=== PATIENT | male | born 1990 | race Native Hawaiian/Other Pacific Islander ===

== ENCOUNTER 2017-07-03 10:31 | Inpatient (IN) | payer SELFPAY ==
[2017-07-03] VITALS (7 sets, daily range): BP systolic 105–109; BP diastolic 49–58; PULSE 66–92; RESP 13–18; TEMP 98.3–99; O2SAT 99–100
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
[2017-07-03] MEDS ORDERED: IOHEXOL 350 MG/ML 10 ML VIAL (for RAD DIAG) IV ONE (10:56)
[2017-07-03 10:59] LABS: I-STAT POTASSIUM 2.8 MMOL/L (3.5-4.9)
[2017-07-03 10:59] LABS: AUTOMATED NEUTROPHIL # 4.9 TH/MM3 (1.8-7.7); BASOPHIL % 0.4 % (0.0-2.0); EOSINOPHIL % 0.3 % (0.0-4.0); HEMATOCRIT 35.6 % (39.0-51.0); HEMO FLAGS DIFF FINAL; LYMPH % 18.2 % (9.0-44.0); LYMPHOCYTE # 1.2 TH/MM3 (1.0-4.8); MEAN CELL VOLUME 87.3 FL (80.0-100.0); MEAN CORPUSCULAR HEMOGLOBIN 29.7 PG (27.0-34.0); MONO % 4.9 % (0.0-8.0); NEUT % 76.2 % (16.0-70.0); PLATELET COUNT 182 TH/MM3 (150-450); RED BLOOD COUNT 4.08 MIL/MM3 (4.50-5.90); RED CELL DISTRIBUTION WIDTH 12.8 % (11.6-17.2); WHITE BLOOD COUNT 6.5 TH/MM3 (4.0-11.0)
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
[2017-07-03 11:06] LABS: APTT (PATIENT) 26.2 SEC (24.3-30.1); INTERNATIONAL NORMALIZED RATIO 1.1 RATIO; PROTHROMBIN TIME - PATIENT 12.4 SEC (9.8-11.6)
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
--- NOTE | 2017-07-03 11:13 | RADRPT ---
EXAM DATE/TIME: 07/03/2017 10:50 [facility] COMPARISON: No previous studies available for comparison. INDICATIONS : Fall from 40 feet IV CONTRAST: 91 cc Omnipaque 350 (iohexol) IV ; Cumulative dose for multiple exams. ORAL CONTRAST: No oral contrast ingested. RADIATION DOSE: 10.91 CTDIvol (mGy) ; Combined studies - Thorax/Abdomen/Pelvis MEDICAL HISTORY : None SURGICAL HISTORY : None. ENCOUNTER: Initial ACUITY: 1 day PAIN SCALE: 0/10 LOCATION: abdomen TECHNIQUE: Volumetric scanning of the abdomen and pelvis was performed. Using automated exposure control and ad justment of the mA and/or kV according to patient size, radiation dose was kept as low as reasonably achievable to obtain optimal diagnostic quality images. DICOM format image data is available electro nically for review and comparison. FINDINGS: LOWER LUNGS: The visualized lower lungs are clear. LIVER: Homogeneous density without lesion. There is no dilation of the biliary tree. No calcified gallston es. There is streak artifact through the liver. SPLEEN: Normal size without lesion. PANCREAS: Within normal limits. KIDNEYS: Normal in size and shape. There is no mass, stone or hydronephrosis. ADRENAL GLANDS: Within normal limits. VASCULAR: There is no aortic aneurysm. BOWEL/MESENTERY: The stomach, small bowel, and colon demonstrate no acute abnormality. There is no free intraperitone al air or fluid. ABDOMINAL WALL: Within normal limits. RETROPERITONEUM: There is no lymphadenopathy. BLADDER: No wall thickening or mass. REPRODUCTIVE: Within normal limits. INGUINAL: There is no lymphadenopathy or hernia. MUSCULOSKELETAL: Within normal limits for patient age. CONCLUSION: Negative trauma CT. Dickson Langford MD on July 03, 2017 at 11:08 Board Certified Radiologist. This report was verified electronically.
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
[2017-07-03] MEDS ORDERED: CHLORHEXIDINE GLUCONATE 2 % 1 PACK (2 CLOTHS) TOP PRN (11:30)
[2017-07-03] MEDS ORDERED: MAGNESIUM HYDROXIDE SUSP 30 ML CUP PO PRN ×2 (11:30→17:45)
[2017-07-03] MEDS ORDERED: MISCELLANEOUS NURSING INFORMATION XX SCH (11:30)
[2017-07-03] MEDS ORDERED: MIDAZOLAM HCL 2 MG/2 ML VIAL ONE ×2 (11:34→11:35)
[2017-07-03] MEDS ORDERED: fentaNYL CITRATE 250 MCG/5 ML AMP ONE (11:35)
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
[2017-07-03] MEDS ORDERED: HYDROmorphone HCL PF 1 MG/ML VIAL IV PUSH PRN (11:45)
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
--- NOTE | 2017-07-03 12:26 | PD.RAD ---
Post Procedure Progress Note Pre Procedure Diagnosis: (1) Injury resulting from fall from height Post Procedure Diagnosis: (1) Injury resulting from fall from height Procedure Date: Jul 03, 2017 Supervising Radiologist: Rob Agudelo JR Proceduralist/Assist: Alfred Sims RT(R), Terese Ozuna RT(R) Anesthesia: Conscious Sedation Plan of Activity Patient to Unit: Critical Care Patient Condition: Good See PACS Report for procedural detail/treatment Vascular-Arterial Procedure Procedure 1 Procedure Site: Thoracic Procedure(s): Angiogram Access Access Site(s): Right Femoral Artery Findings: Thoracic angiogram shows no intimal tear or extravasation to suggest aortic injury. Jr. Magnus,Rob Del Valle MD Jul 03, 2017 12:26
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
[2017-07-03] MEDS ORDERED: IODIXANOL 320 MG/ML 50 ML VIAL (for RAD SPEC) I-ARTERIAL ONE (13:03)
[2017-07-03] MEDS: HYDROmorphone HCL PF 1 MG/ML VIAL IV PRN ×3 (13:16→21:48)
[2017-07-03] MEDS: FAMOTIDINE 20 MG/2 ML VIAL IV PUSH SCH ×2 (13:35→21:18)
[2017-07-03] MEDS: SODIUM CHLOR 0.9% 1000 ML INJ 1,000 ML IV SCH ×2 (13:57→21:32)
--- NOTE | 2017-07-03 14:16 | RADRPT ---
EXAM DATE/TIME: 07/03/2017 00:00 [place] COMPARISON: CT THORAX W CONTRAST, July 03, 2017, 10:50. INDICATIONS : Trauma patient presents with possible dissection in need of thoracic aortogram with possible interven tions. MEDICAL HISTORY : Unobtainable SURGICAL HISTORY : Unobtainable ENCOUNTER: Initial ACUITY: 1 day PAIN SCORE: 0/10 LOCATION: n/a FLUORO TIME: 1.9 IMAGE SERIES: 2 ACCESS SITE: Right Femoral artery SEDATION TIME: 20 minutes CONTRAST: 1.) 65 cc Visipaque (iodixanol) MEDICATION(S): 1.) 3 mg midazolam (Versed) IV 2.) 150 mcg fentanyl (Sublimaze) IV PROCEDURE : 1. Ultrasound-guided puncture of the access site. 2. Conscious sedation with continuous EKG and Oximetry monitoring. 3. Angiography of the thoracic aorta The risks, benefits and alternatives to the procedure were explained and verbal and written consent w as obtained. The site was prepped in sterile fashion. Full sterile technique was used, including ca p, mask, sterile gloves and gown and a large sterile sheet. Hand hygiene and 2% chlorhexidine and/or betadine/alcohol prep was utilized per protocol for cutaneous antisepsis. The skin and subcutaneous tissues were infiltrated with local anesthetic solution. With ultrasound and fluoroscopic guidance the right common femoral artery was punctured and a vascula r sheath was placed A 5 Polish pigtail catheter was positioned in the ascending aorta and an arch aortogram performed in orthogonal projections. These diagnostic images show normal flow through the thoracic aorta and arch vessels. No extravasation of contrast. No intimal injury observed. No dissection flap. No aneurysm. The puncture site was closed with manual pressure and hemostasis was obtained. The patient tolerated the procedure well and there were no complications. Conscious sedation was performed with the prescribed dosages and duration as above in the presence of an independent trained radiology nurse to assist in the monitoring of the patient. EKG and oximetry remained stable throughout the procedure. CONCLUSION: Thoracic aortogram is normal. Rob Agudelo Jr., MD on July 03, 2017 at 13:52 Board Certified Radiologist. This report was verified electronically.
[2017-07-03] MEDS ORDERED: ONDANSETRON HCL 4 MG/2 ML VIAL IV PUSH ONE (14:20)
[2017-07-03] MEDS ORDERED: MORPHINE SULFATE 4 MG/ML INJ IV PUSH ONE (14:20)
[2017-07-03] MEDS: METHOCARBAMOL 500 MG TAB PO SCH ×2 (14:34→21:31)
[2017-07-03] MEDS: KETOROLAC TROMETHAMINE 30 MG/ML (IVP) VIAL IV PUSH SCH (17:38)
[2017-07-03] MEDS ORDERED: ONDANSETRON HCL 4 MG/2 ML VIAL IV PRN (17:45)
[2017-07-03] MEDS ORDERED: ACETAMINOPHEN 325 MG TAB PO PRN (17:45)
[2017-07-03] MEDS ORDERED: SODIUM CHLORIDE 0.9% FLUSH 10 ML FLUSH IV FLUSH PRN (17:45)
[2017-07-03] MEDS ORDERED: cloNIDine HCL 0.1 MG TAB PO PRN (17:45)
[2017-07-03] MEDS ORDERED: POTASSIUM CHLOR 20 MEQ PREMIX 100 ML IV PRN (17:45)
[2017-07-03] MEDS ORDERED: ALUMINUM/MAGNESIUM/SIMETH 30 ML CUP PO PRN (17:45)
[2017-07-03] MEDS ORDERED: ACETAMINOPHEN/HYDROcodone 325 MG/10 MG TAB PO PRN (17:45)
[2017-07-03] MEDS: ENOXAPARIN SODIUM 40 MG/0.4 ML SYRINGE SQ SCH (18:52)
[2017-07-03] MEDS: DOCUSATE SODIUM 50 MG/SENNA 8.6 MG TAB PO SCH (21:00)
[2017-07-03] MEDS: SODIUM CHLORIDE 0.9% FLUSH 10 ML FLUSH IV FLUSH SCH (21:00)
[2017-07-03] MEDS: DOCUSATE SODIUM 100 MG CAP PO SCH (21:18)
--- NOTE | 2017-07-03 21:29 | MB ---
cc: ERMA TOLENTINO M.D. DATE OF CONSULTATION 07/03/2017 REASON FOR CONSULTATION L3 and L4 vertebral body fractures. HISTORY OF PRESENT ILLNESS This is a 26-year-old gentleman from [facility] who was skydiving and his parachute got caught on a tree branch about 40 feet in height and he had a hard fall landing on his feet and subsequently his back in a little puddle of water. He denies any loss of consciousness or any numbness or paresthesias in his hands or feet. His main complaint is low back pain. He was brought in as a trauma alert and the workup included CT scan of the head which was negative for any intracranial injury. A complete spine CT scan was obtained and revealed L3 and L4 anterior superior end plate fractures with slight compression, although no retropulsion or facet fractures involving the posterior elements. On the chest CT scan there was a questionable abnormal aortic arch and thoracic arteriogram was obtained which was normal also. The patient does not speak Kyrgyz very well but he does have a friend at the bedside who translates for him. PAST MEDICAL HISTORY Unremarkable. MEDICATIONS None. ALLERGIES NO KNOWN DRUG ALLERGIES. SOCIAL HISTORY He is from [facility] and here for [employer] training and scheduled to leave in a couple of weeks. Denies any alcohol or tobacco use. REVIEW OF SYSTEMS Positive for low back pain otherwise negative. Denies any headaches. Denies any neck pain. Denies any numbness or paresthesias in the upper or lower extremities. Denies any weakness. Denies any incontinence. No chest pain or shortness of breath. No abdominal pain. No nausea or vomiting or double vision, blurred vision. No history of easy bleeding or bruising. No fevers or chills. No recent weight gain or weight loss. LABORATORY FINDINGS White blood cell count 6.5, hemoglobin 12.1, platelet count 182. PT 12.4, INR 1.1, PTT 26.2. sodium 146, potassium 2.8, BUN 21, creatinine 0.9, glucose 116. PHYSICAL EXAMINATION VITAL SIGNS: Temperature 99, pulse 80, respiratory rate 14, blood pressure 109/49, oxygen saturations is 100% on 4 liters nasal cannula. HEAD: Normocephalic, atraumatic. NECK: Supple with no guarding or rigidity. CHEST: Clear to auscultation bilaterally. HEART: Regular rate and rhythm, normal S1-S2. ABDOMEN: Soft, nontender. EXTREMITIES: No cyanosis or edema. NEUROLOGIC: He is awake, alert and he is oriented and questions through the friend who translates for him. Pupils equal, reactive. Extraocular muscles intact. Face is symmetric. Tongue is midline. His motor strength in the upper or lower extremities is 5/5. Some giveaway with strength in the proximal and lower extremities due to pain. Light touch sensation is intact. Negative Babinski. Speech is fluent. IMPRESSION L3 and L4 anterior superior endplate mild compression fracture deformity without any retropulsion or associated stenosis after skydiving accident. PLAN The patient will be fitted with a TLSO brace and once available he can be out of bed with the brace on. Recommend mechanical / chemical DVT prophylaxis and increase his activity status with physical therapy involvement once the patient is available along with pain control. I have recommended the use of the brace for the next 6-8 weeks with a followup x-ray in 6 weeks to assess for fracture healing. He is to refrain from any physical or exertional activity as well as skydiving for the next 4-6 months. MD TERESA Rivas/QUINN /5:34 PM /9:06 PM
[2017-07-04] VITALS (7 sets, daily range): BP systolic 103–140; BP diastolic 52–75; PULSE 58–70; RESP 10–18; TEMP 97.3–99; O2SAT 96–100
[2017-07-04] MEDS: KETOROLAC TROMETHAMINE 30 MG/ML (IVP) VIAL IV PUSH SCH ×4 (00:40→17:16)
[2017-07-04] MEDS ORDERED: CHLORHEXIDINE GLUCONATE 2 % 1 PACK (2 CLOTHS) TOP SCH (04:00)
[2017-07-04 04:51] LABS: AUTOMATED NEUTROPHIL # 3.5 TH/MM3 (1.8-7.7); BASOPHIL % 0.5 % (0.0-2.0); EOSINOPHIL # 0.1 TH/MM3 (0-0.4); HEMATOCRIT 37.4 % (39.0-51.0); HEMO FLAGS DIFF FINAL; LYMPH % 23.8 % (9.0-44.0); LYMPHOCYTE # 1.3 TH/MM3 (1.0-4.8); MEAN CELL VOLUME 87.1 FL (80.0-100.0); MEAN CORPUSCULAR HEMOGLOBIN 30.2 PG (27.0-34.0); MEAN CORPUSCULAR HGB CONC 34.7 % (32.0-36.0); MONO % 8.9 % (0.0-8.0); NEUT % 64.8 % (16.0-70.0); PLATELET COUNT 146 TH/MM3 (150-450); RED CELL DISTRIBUTION WIDTH 12.8 % (11.6-17.2); WHITE BLOOD COUNT 5.4 TH/MM3 (4.0-11.0)
[2017-07-04 05:37] LABS: BICARBONATE 27.1 MEQ/L (21.0-32.0); POTASSIUM 4.3 MEQ/L (3.5-5.1)
[2017-07-04] MEDS: METHOCARBAMOL 500 MG TAB PO SCH ×3 (05:52→21:36)
[2017-07-04] MEDS: SODIUM CHLOR 0.9% 1000 ML INJ 1,000 ML IV SCH (07:28)
[2017-07-04] MEDS: DOCUSATE SODIUM 50 MG/SENNA 8.6 MG TAB PO SCH ×2 (08:27→21:36)
[2017-07-04] MEDS: SODIUM CHLORIDE 0.9% FLUSH 10 ML FLUSH IV FLUSH SCH ×2 (08:27→21:38)
[2017-07-04] MEDS: DOCUSATE SODIUM 100 MG CAP PO SCH ×2 (08:27→21:36)
[2017-07-04] MEDS: FAMOTIDINE 20 MG/2 ML VIAL IV PUSH SCH (08:27)
--- NOTE | 2017-07-04 09:44 | HHI.NSPN ---
(Fredis Damon) History Chief Complaint: Low back pain. (Fredis Damon) Interval History This is a 26-year-old gentleman from [facility] who was skydiving and his parachute got caught on a tree branch about 40 feet in height and he had a hard fall landing on his feet and subsequently his back in a little puddle of water. He denies any loss of consciousness or any numbness or paresthesias in his hands or feet. His main complaint is low back pain. He was brought in as a trauma alert and the workup included CT scan of the head which was negative for any intracranial injury. A complete spine CT scan was obtained and revealed L3 and L4 anterior superior end plate fractures with slight compression, although no retropulsion or facet fractures involving the posterior elements. On the chest CT scan there was a questionable abnormal aortic arch and thoracic arteriogram was obtained which was normal also. The patient does not speak Nauruan very well but he does have a friend at the bedside who translates for him. 07/04/17: Pt awake and alert. Complains of low back pain but controlled. No radiculopathy or paresthesias in LEs. (Fredis Damon) Review of Systems General: Negative for: fever, chills, insomnia Respiratory: Negative for: shortness of breath, cough, sputum Cardiovascular: Negative for: chest pain Gastrointestinal: Negative for: nausea, vomitting, diarrhea, constipation ( Fredis Damon) Exam Results Vital Signs Date Time Temp Pulse Resp B/P Pulse Ox O2 Delivery O2 Flow Rate FiO2 07/04/17 08:00 97.8 58 13 103/58 99 07/04/17 07:00 Room Air 07/03/17 10:15 4.00 Intake and Output 07/03/17 07/03/17 07/03/17 07:59 15:59 23:59 Intake Total 1322 ml Output Total 2500 ml Balance -1178 ml (Fredis Damon) Physical Examination Resp: CTA bilaterally Heart: NSR no murmurs Abd: Soft positive bs Skin: No cyanosis or erythema Muscle: Moves LEs with 5/5 strength in LEs. Neuro: Pt awake and alert. Follow commands well. Sensation intact in LEs to light touch. (Fredis Damon) Lab, Micro, Other Results Last Impressions Thoracic Spine CT 07/03/171034 Signed Impressions: Service Date/Time: Monday, July 03, 2017 10:48 - CONCLUSION: Negative trauma CT. Dickson Langford MD Pelvis X-Ray 07/03/171034 Signed Impressions: Service Date/Time: Monday, July 03, 2017 10:26 - CONCLUSION: No acute disease. Rob Agudelo Jr., MD Lumbar Spine CT 07/03/171034 Signed Impressions: Service Date/Time: Monday, July 03, 2017 10:48 - CONCLUSION: 1. Fracture deformities involving the anterior superior aspects of the L3 and L4 vertebral bodies with slight invagination of the superior endplate irregularity. There is no retropulsion. 2. Mild disc bulges at the L2-3 through L5-S1 levels. Dickson Langford MD Head CT 07/03/171034 Signed Impressions: Service Date/Time: Monday, July 03, 2017 10:45 - CONCLUSION: Negative for acute traumatic injury. Getachew Leigh MD FACR Chest X-Ray 07/03/171034 Signed Impressions: Service Date/Time: Monday, July 03, 2017 10:26 - CONCLUSION: 1. No acute abnormality. 2. Old right clavicular fracture. Rob Agudelo Jr., MD Chest CT 07/03/171034 Signed Impressions: Service Date/Time: Monday, July 03, 2017 10:50 - CONCLUSION: Questionable abnormal aortic arch. Conventional radiography is pending. Getachew Leigh MD FACR Cervical Spine CT 07/03/171034 Signed Impressions: Service Date/Time: Monday, July 03, 2017 10:47 - CONCLUSION: Negative trauma CT. Dickson Langford MD Abdomen/Pelvis CT 07/03/171034 Signed Impressions: Service Date/Time: Monday, July 03, 2017 10:50 - CONCLUSION: Negative trauma CT. Dickson Langford MD Thoracic Arteriogram 07/03/17 0000 Signed Impressions: Service Date/Time: Monday, July 03, 2017 00:00 - CONCLUSION: Thoracic aortogram is normal. Rob Agudelo Jr., MD Laboratory Tests Test 07/03/17 07/03/17 07/04/17 09:58 10:36 04:17 Bedside Hemoglobin 11.2 G/DL Bedside Hematocrit 33.0 % Bedside Sodium 146 MMOL/L Bedside Potassium 2.8 MMOL/L Potassium Level 2.9 MEQ/L 4.3 MEQ/L Bedside Chloride 112 MMOL/L Bedside Blood Urea Nitrogen 21 MG/DL Bedside Creatinine 0.9 MG/DL Bedside Glucose 116 MG/DL White Blood Count 6.5 TH/MM3 5.4 TH/MM3 Red Blood Count 4.08 MIL/MM3 4.30 MIL/MM3 Hemoglobin 12.1 GM/DL 13.0 GM/DL Hematocrit 35.6 % 37.4 % Mean Corpuscular Volume 87.3 FL 87.1 FL Mean Corpuscular Hemoglobin 29.7 PG 30.2 PG Mean Corpuscular Hemoglobin 34.0 % 34.7 % Concent Red Cell Distribution Width 12.8 % 12.8 % Platelet Count 182 TH/MM3 146 TH/MM3 Mean Platelet Volume 8.6 FL 9.6 FL Neutrophils (%) (Auto) 76.2 % 64.8 % Lymphocytes (%) (Auto) 18.2 % 23.8 % Monocytes (%) (Auto) 4.9 % 8.9 % Eosinophils (%) (Auto) 0.3 % 2.0 % Basophils (%) (Auto) 0.4 % 0.5 % Neutrophils # (Auto) 4.9 TH/MM3 3.5 TH/MM3 Lymphocytes # (Auto) 1.2 TH/MM3 1.3 TH/MM3 Monocytes # (Auto) 0.3 TH/MM3 0.5 TH/MM3 Eosinophils # (Auto) 0.0 TH/MM3 0.1 TH/MM3 Basophils # (Auto) 0.0 TH/MM3 0.0 TH/MM3 CBC Comment DIFF FINAL DIFF FINAL Differential Comment Prothrombin Time 12.4 SEC Prothromb Time International 1.1 RATIO Ratio Activated Partial 26.2 SEC Thromboplast Time Blood Type O POSITIVE Antibody Screen NEGATIVE Sodium Level 140 MEQ/L Chloride Level 109 MEQ/L Carbon Dioxide Level 27.1 MEQ/L Anion Gap 4 MEQ/L Blood Urea Nitrogen 22 MG/DL Creatinine 1.07 MG/DL Estimat Glomerular Filtration 60 ML/MIN Rate Random Glucose 89 MG/DL Calcium Level 7.7 MG/DL 07/03/17 07/03/17 07/04/17 14:59 22:59 06:59 Intake Total 1322 ml 992 ml Output Total 2500 ml 550 ml Balance -1178 ml 442 ml Intake Oral 480 ml 240 ml IV Total 842 ml 752 ml Output Urine Total 2500 ml 550 ml # Bowel Movements 0 0 (Fredis Damon) Medical Decision Making Impression and Plan A: L3 and L4 anterior superior endplate mild compression fracture deformity without any retropulsion or associated stenosis after skydiving accident. PLAN Continue with mechanical / chemical DVT prophylaxis and increase his activity status physical therapy with TLSO brace on. Continue with the use of the brace for the next 6-8 weeks with a followup x-ray in 6 weeks to assess for fracture healing. He is to refrain from any physical or exertional activity as well as skydiving for the next 4-6 months. Neurosurgically stable to transfer to floor. (Fredis Damon) Attending Statement The exam, history, and the medical decision-making described in the above note were completed with the assistance of the mid-level provider. I reviewed and agree with the findings presented. I attest that I had a [id number] encounter with the patient on the same day, and personally performed and documented my assessment and findings in the medical record. Continue with pain control and out of bed with the TLSO brace on and physical therapy evaluation. (Felix Beltrán MD) Fredis Damon Jul 04, 2017 09:44 Felix Beltrán MD Jul 04, 2017 13:12
[2017-07-04] MEDS: ACETAMINOPHEN/HYDROcodone 325 MG/10 MG TAB PO PRN ×2 (11:00→17:16)
[2017-07-04] MEDS ORDERED: DOCU1CAP39 PO (13:40)
[2017-07-04] MEDS ORDERED: MAGN400S PO (13:40)
--- NOTE | 2017-07-04 13:50 | HHI.CCPN ---
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 Initially he fell into a tree, however he then fell an additional 40 feet into a ditch. He was neurovascularly intact at the scene. MAEW. INJURIES: NO AORTIC INJURY L3 and L4 compression fx L2-L3 and L5-S1 disk bulge 24 Hour Review/Hospital Course 07/04/2017 PTD: 1 Patient sitting up in bed. No distress noted. Patient complains of some back pain. Plan for transfer to the [facility]. Objective Vital Signs Date Time Temp Pulse Resp B/P Pulse Ox O2 Delivery O2 Flow Rate FiO2 07/04/17 12:06 97.3 62 18 123/72 100 07/04/17 07:00 Room Air 07/03/17 10:15 4.00 Intake and Output 07/03/17 07/03/17 07/04/17 08:00 16:00 00:00 Intake Total 1322 ml Output Total 2500 ml Balance -1178 ml Result Diagram: 07/04/17 0417 07/04/17 0417 Imaging Last 72 hours Impressions [address] Spine CT 07/03/175 Signed Impressions: Service Date/Time: Monday, July 03, 2017 10:48 - CONCLUSION: Negative trauma CT. Dickson Langford MD Pelvis X-Ray 07/03/171034 Signed Impressions: Service Date/Time: Monday, July 03, 2017 10:26 - CONCLUSION: No acute disease. Rob Agudelo Jr., MD Lumbar Spine CT 07/03/171034 Signed Impressions: Service Date/Time: Monday, July 03, 2017 10:48 - CONCLUSION: 1. Fracture deformities involving the anterior superior aspects of the L3 and L4 vertebral bodies with slight invagination of the superior endplate irregularity. There is no retropulsion. 2. Mild disc bulges at the L2-3 through L5-S1 levels. Dickson Langford MD Head CT 07/03/171034 Signed Impressions: Service Date/Time: Monday, July 03, 2017 10:45 - CONCLUSION: Negative for acute traumatic injury. Getachew Leigh MD FACR Chest X-Ray 07/03/171034 Signed Impressions: Service Date/Time: Monday, July 03, 2017 10:26 - CONCLUSION: 1. No acute abnormality. 2. Old right clavicular fracture. Rob Agudelo Jr., MD Chest CT 07/03/17 1035 Signed Impressions: Service Date/Time: Monday, July 03, 2017 10:50 - CONCLUSION: Questionable abnormal aortic arch. Conventional radiography is pending. Getachew Leigh MD FACR Cervical Spine CT 07/03/17 1035 Signed Impressions: Service Date/Time: Monday, July 03, 2017 10:47 - CONCLUSION: Negative trauma CT. Dickson Langford MD Abdomen/Pelvis CT 07/03/17 1035 Signed Impressions: Service Date/Time: Saturday, July 03, 2017 10:50 - CONCLUSION: Negative trauma CT. Dickson Langford MD Thoracic Arteriogram 07/03/17 0000 Signed Impressions: Service Date/Time: Monday, July 03, 2017 00:00 - CONCLUSION: Thoracic aortogram is normal. Rob Agudelo Jr., MD Objective Remarks GENERAL: This is a 26-year-old male lying in bed. No distress noted. Pleasant and cooperative. SKIN: Warm and dry. HEAD: Atraumatic. Normocephalic. EYES: PERRLA ENT: No nasal bleeding or discharge. Mucous membranes pink and moist. NECK: Trachea midline. No JVD. CARDIOVASCULAR: Regular rate and rhythm. RESPIRATORY: No accessory muscle use. Lungs are clear to auscultation. Breath sounds equal bilaterally. No distress or dyspnea. GASTROINTESTINAL: BS + x 4 quads. Abdomen soft, non-tender, nondistended. MUSCULOSKELETAL: Extremities without cyanosis, or edema. + peripheral pulses x 4 extremities. Warm with good capillary refill and sensation. MAEW. NEUROLOGICAL: Awake and alert. Normal speech and pattern. 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 Initially he fell into a tree, and then he fell an additional 40 into a ditch. Neuro intact. An MAEW. INJURIES: NO AORTIC INJURY L3 and L4 compression fx L2-L3 and L5-S1 disk bulge Procedures: Consults: Neurosurgery. Critical care management. Case management Diet: Regular diet. Tolerating po diet. Encourage good po intake with each meal. Pulmonary: Encourage good pulmonary toileting. IS at bedside and pt encouraged to use. Rationale for use explained to patient, and verbalized understanding. PAIN Management: [place] 10-20 mg every 4 hours. Dilaudid 1 mg every 3 hours for breakthrough pain. Robaxin 500 mg every 8 hours. Toradol 15 mg every 6 hours. Activity: OOB. PT and OT ordered. (TLSO brace when out of bed and for 6-8 weeks) GI prophylaxis: Pepcid hs. Bowel regimen: Colace and MOM. LBM: 0 DVT prophylaxis: Mechanical VTE with SCDs. Chemical management with Lovenox 40 qd SQ. DC Planning: Case management consulted for assistance with final discharge disposition. Emotional support provided to patient and family at bedside and plan of care discussed. Discussed with RN at bedside. Patient is hemodynamically stable and being managed on the med/surg floor. The trauma team will round each day, and evaluate plan of care on a daily basis. L3 and L4 compression fx L2-L3 and L5-S1 disk bulge Neurosurgery consulted and assisting in management and care Serial neuro checks Pain management Encourage out of bed TLSO brace when out of bed PT and OT ordered Domenica Joyner Jul 04, 2017 13:50
[2017-07-04] MEDS: ENOXAPARIN SODIUM 40 MG/0.4 ML SYRINGE SQ SCH (17:16)
[2017-07-04] MEDS: FAMOTIDINE 20 MG TAB PO SCH (21:36)
[2017-07-05] VITALS (8 sets, daily range): BP systolic 114–137; BP diastolic 54–77; PULSE 59–71; RESP 17–20; TEMP 96.8–98.5; O2SAT 97–99
[2017-07-05] MEDS: KETOROLAC TROMETHAMINE 30 MG/ML (IVP) VIAL IV PUSH SCH ×3 (00:12→12:07)
[2017-07-05] MEDS: METHOCARBAMOL 500 MG TAB PO SCH ×3 (06:37→21:06)
[2017-07-05 07:51] LABS: HEMATOCRIT 40.3 % (39.0-51.0); MEAN CELL VOLUME 87.5 FL (80.0-100.0); MEAN CORPUSCULAR HEMOGLOBIN 30.3 PG (27.0-34.0); MEAN CORPUSCULAR HGB CONC 34.7 % (32.0-36.0); PLATELET COUNT 146 TH/MM3 (150-450); RED BLOOD COUNT 4.61 MIL/MM3 (4.50-5.90); RED CELL DISTRIBUTION WIDTH 12.7 % (11.6-17.2); REVIEW FLAG FINAL; WHITE BLOOD COUNT 4.8 TH/MM3 (4.0-11.0)
[2017-07-05 08:05] LABS: BICARBONATE 27.5 MEQ/L (21.0-32.0); POTASSIUM 4.3 MEQ/L (3.5-5.1)
[2017-07-05] MEDS ORDERED: WALKER WHEELS/F1 MIS (08:17)
[2017-07-05] MEDS: SODIUM CHLORIDE 0.9% FLUSH 10 ML FLUSH IV FLUSH SCH ×2 (09:56→21:07)
[2017-07-05] MEDS: DOCUSATE SODIUM 50 MG/SENNA 8.6 MG TAB PO SCH ×2 (09:56→21:06)
[2017-07-05] MEDS: DOCUSATE SODIUM 100 MG CAP PO SCH ×2 (09:56→21:06)
--- NOTE | 2017-07-05 11:35 | HHI.NSPN ---
(Fredis Damon) History Chief Complaint: Low back pain. (Fredis Damon) Interval History This is a 26-year-old gentleman from [facility] who was skydiving and his parachute got caught on a tree branch about 40 feet in height and he had a hard fall landing on his feet and subsequently his back in a little puddle of water. He denies any loss of consciousness or any numbness or paresthesias in his hands or feet. His main complaint is low back pain. He was brought in as a trauma alert and the workup included CT scan of the head which was negative for any intracranial injury. A complete spine CT scan was obtained and revealed L3 and L4 anterior superior end plate fractures with slight compression, although no retropulsion or facet fractures involving the posterior elements. On the chest CT scan there was a questionable abnormal aortic arch and thoracic arteriogram was obtained which was normal also. The patient does not speak Tristanian very well but he does have a friend at the bedside who translates for him. 07/04/17: Pt awake and alert. Complains of low back pain but controlled. No radiculopathy or paresthesias in LEs. 07/05/17: Pt awake and alert. Complains of low back pain, controlled. No radiculopathy or paresthesias in LEs. Getting up with lumbar brace and ambulating. (Fredis Damon) Review of Systems General: Negative for: fever, chills, insomnia Respiratory: Negative for: shortness of breath, cough, sputum Cardiovascular: Negative for: chest pain Gastrointestinal: Negative for: nausea, vomitting, diarrhea, constipation ( Fredis Damon) Exam Results Vital Signs Date Time Temp Pulse Resp B/P Pulse Ox O2 Delivery O2 Flow Rate FiO2 07/05/17 08:00 96.8 64 20 125/69 97 07/04/17 07:00 Room Air 07/03/17 10:15 4.00 Intake and Output 07/04/17 07/04/17 07/05/17 08:00 16:00 00:00 Intake Total 992 ml 949 ml 360 ml Output Total 550 ml 1350 ml Balance 442 ml -401 ml 360 ml (Fredis Damon) Physical Examination Resp: CTA bilaterally Heart: NSR no murmurs Abd: Soft positive bs Skin: No cyanosis or erythema Muscle: Moves LEs with 5/5 strength in LEs. Neuro: Pt awake and alert. Follow commands well. Sensation intact in LEs to light touch. (Fredis Daomn) Lab, Micro, Other Results Last Impressions Thoracic Spine CT 07/03/171034 Signed Impressions: Service Date/Time: Monday, July 03, 2017 10:48 - CONCLUSION: Negative trauma CT. Dickson Langford MD Pelvis X-Ray 07/03/171034 Signed Impressions: Service Date/Time: Monday, July 03, 2017 10:26 - CONCLUSION: No acute disease. Rob Agudelo Jr., MD Lumbar Spine CT 07/03/171034 Signed Impressions: Service Date/Time: Monday, July 03, 2017 10:48 - CONCLUSION: 1. Fracture deformities involving the anterior superior aspects of the L3 and L4 vertebral bodies with slight invagination of the superior endplate irregularity. There is no retropulsion. 2. Mild disc bulges at the L2-3 through L5-S1 levels. Dickson Langford MD Head CT 07/03/171034 Signed Impressions: Service Date/Time: Monday, July 03, 2017 10:45 - CONCLUSION: Negative for acute traumatic injury. Getachew Leigh MD FACR Chest X-Ray 07/03/171034 Signed Impressions: Service Date/Time: Monday, July 03, 2017 10:26 - CONCLUSION: 1. No acute abnormality. 2. Old right clavicular fracture. Rob Agudelo Jr., MD Chest CT 07/03/171034 Signed Impressions: Service Date/Time: Monday, July 03, 2017 10:50 - CONCLUSION: Questionable abnormal aortic arch. Conventional radiography is pending. Getachew Leigh MD FACR Cervical Spine CT 07/03/171034 Signed Impressions: Service Date/Time: Monday, July 03, 2017 10:47 - CONCLUSION: Negative trauma CT. Dickson Langford MD Abdomen/Pelvis CT 07/03/17 1035 Signed Impressions: Service Date/Time: Monday, July 03, 2017 10:50 - CONCLUSION: Negative trauma CT. Dickson Langford MD Thoracic Arteriogram 07/03/17 0000 Signed Impressions: Service Date/Time: Monday, July 03, 2017 00:00 - CONCLUSION: Thoracic aortogram is normal. Rob Agudelo Jr., MD Laboratory Tests Test 07/05/17 07:28 White Blood Count 4.8 TH/MM3 Red Blood Count 4.61 MIL/MM3 Hemoglobin 14.0 GM/DL Hematocrit 40.3 % Mean Corpuscular Volume 87.5 FL Mean Corpuscular Hemoglobin 30.3 PG Mean Corpuscular Hemoglobin 34.7 % Concent Red Cell Distribution Width 12.7 % Platelet Count 146 TH/MM3 Mean Platelet Volume 9.1 FL Sodium Level 141 MEQ/L Potassium Level 4.3 MEQ/L Chloride Level 108 MEQ/L Carbon Dioxide Level 27.5 MEQ/L Anion Gap 6 MEQ/L Blood Urea Nitrogen 21 MG/DL Creatinine 1.13 MG/DL Estimat Glomerular Filtration 78 ML/MIN Rate Random Glucose 83 MG/DL Calcium Level 8.5 MG/DL 07/04/17 07/04/17 07/05/17 15:00 23:00 07:00 Intake Total 949 ml 360 ml 240 ml Output Total 1350 ml Balance -401 ml 360 ml 240 ml Intake Oral 480 ml 360 ml 240 ml IV Total 469 ml Output Urine Total 1350 ml # Voids 1 4 # Bowel Movements 0 0 0 (Fredis Damon) Medical Decision Making Impression and Plan A: L3 and L4 anterior superior endplate mild compression fracture deformity without any retropulsion or associated stenosis after skydiving accident. PLAN Continue with mechanical / chemical DVT prophylaxis and increase his activity status physical therapy with TLSO brace on. Continue with the use of the brace for the next 6-8 weeks with a followup x-ray in 6 weeks to assess for fracture healing. He is to refrain from any physical or exertional activity as well as skydiving for the next 4-6 months. Neurosurgically stable for discharge. Pt states he will stay in [place] for few weeks and is then going to return to [facility] and obtain his x-rays there. (Fredis Damon) Attending Statement The exam, history, and the medical decision-making described in the above note were completed with the assistance of the mid-level provider. I reviewed and agree with the findings presented. I attest that I had a [id number] encounter with the patient on the same day, and personally performed and documented my assessment and findings in the medical record. Doing well and ambulating with the brace. Stable for discharge from neurosurgical standpoint. (Felix Beltrán MD) Fredis Damon Jul 05, 2017 11:35 Felix Beltrán MD Jul 05, 2017 13:53
--- NOTE | 2017-07-05 16:51 | HHI.PR ---
Subjective Subjective Notes pt states pain controlled pos BM Objective Vitals/I&O Vital Signs Date Time Temp Pulse Resp B/P Pulse Ox O2 Delivery O2 Flow Rate FiO2 07/05/17 12:00 98.5 63 20 127/67 97 07/05/17 08:00 Room Air 07/03/17 10:15 4.00 Labs Laboratory Tests Test 07/05/17 07:28 White Blood Count 4.8 Red Blood Count 4.61 Hemoglobin 14.0 Hematocrit 40.3 Mean Corpuscular Volume 87.5 Mean Corpuscular Hemoglobin 30.3 Mean Corpuscular Hemoglobin 34.7 Concent Red Cell Distribution Width 12.7 Platelet Count 146 Mean Platelet Volume 9.1 Sodium Level 141 Potassium Level 4.3 Chloride Level 108 Carbon Dioxide Level 27.5 Anion Gap 6 Blood Urea Nitrogen 21 Creatinine 1.13 Estimat Glomerular Filtration 78 Rate Random Glucose 83 Calcium Level 8.5 Abdomen: Non-tender Extremities: Perfused A/P Assessment and Plan pt with l spine fx non operative management Doing well likely d/c tomorrow Marshall Bolivar MD Jul 05, 2017 16:51
[2017-07-05] MEDS: ENOXAPARIN SODIUM 40 MG/0.4 ML SYRINGE SQ SCH (17:01)
[2017-07-05] MEDS: FAMOTIDINE 20 MG TAB PO SCH (21:06)
[2017-07-06] VITALS: BP 123/88; PULSE 56; RESP 17; TEMP 96.4; O2SAT 98
[2017-07-06 04:00] VITALS: BP 121/69; PULSE 62; RESP 16; TEMP 96.9; O2SAT 98
[2017-07-06] MEDS: METHOCARBAMOL 500 MG TAB PO SCH ×2 (05:10→13:15)
[2017-07-06 08:20] VITALS: BP 116/72; PULSE 68; RESP 18; TEMP 96.1; O2SAT 97
[2017-07-06] MEDS: DOCUSATE SODIUM 100 MG CAP PO SCH (08:23)
[2017-07-06] MEDS: DOCUSATE SODIUM 50 MG/SENNA 8.6 MG TAB PO SCH (08:23)
[2017-07-06] MEDS: SODIUM CHLORIDE 0.9% FLUSH 10 ML FLUSH IV FLUSH SCH (09:00)
[2017-07-06] MEDS ORDERED: NORC5TAB PO (09:40)
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
[2017-07-06] MEDS ORDERED: METH500T3 PO (11:41)
[2017-07-06 12:00] VITALS: BP 125/71; PULSE 68; RESP 18; TEMP 96.2; O2SAT 99
[2017-07-06] MEDS: ACETAMINOPHEN/HYDROcodone 325 MG/10 MG TAB PO PRN (13:15)
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
== END 2017-07-06 14:21 | disposition home or self-care (01) | DRG 552 ==
LOC: NEPI 10:31 → EDBD 10:47 → NEDA 10:47 → N03B 12:46 → N06A 07-04 10:13
PROVIDERS: ADMIT Surgery Trauma Surgery; ATTEND Surgery Trauma Surgery
PROC: B3101ZZ Fluoroscopy of Thoracic Aorta using Low Osmolar Contrast (ICD-10-PCS; principal; 2017-07-03)
DX: S32.038A Other fracture of third lumbar vertebra, initial encounter for closed fracture (principal); S32.048A Other fracture of fourth lumbar vertebra, initial encounter for closed fracture; V97.2 Parachutist accident; W17.89XA Other fall from one level to another, initial encounter; Y93.79 Activity, other specified sports and athletics; Y92.89 Other specified places as the place of occurrence of the external cause; Y99.8 Other external cause status
CPT/HCPCS: 36200; 51702; 70450; 71010; 71260; 72125; 72128; 72131; 72170; 74177; 75605; 76937; 80048; 82435; 82565; 82947; 84132; 84295; 84520; 85025; 85027; 85610; 85730; 86850; 86900; 86901; 94150; 96374; 96375; 96376; 99152; 99153; 99291; A0431-QM-SH; A0436-QM-SH; C1769; C1887; C1894; G0390; J1170; J1650; J1885; J2250; J2270; J2405; J3010; J3480; J7030; L0200; L0484; Q9967